=== PATIENT | female | born 1965 | race Caucasian/White ===

== ENCOUNTER 2017-07-21 19:03 | Emergency (ER) | payer BC ==
[~2017-07-21] VITALS: Ht 162.6 cm; Wt 60.0 kg
[2017-07-21] MEDS ORDERED: NAPR500T7 PO (19:18)
[2017-07-21] MEDS ORDERED: KETOROLAC 60MG/2ML VIAL IM ONE (19:45)
[2017-07-21] MEDS ORDERED: HYDROCODONE/ACETAMINOPHEN 5/325MG TABLET PO ONE (19:45)
[2017-07-21 20:13] LABS: HCG SCREEN NEGATIVE
[2017-07-21 21:19] VITALS: BP 119/74
== END 2017-07-21 21:19 | disposition home or self-care (01) ==
LOC: ER 19:32
DX: M54.2 Cervicalgia (principal); M19.90 Unspecified osteoarthritis, unspecified site; V89.2XXA Person injured in unspecified motor-vehicle accident, traffic, initial encounter; Y93.89 Activity, other specified; Y92.411 Interstate highway as the place of occurrence of the external cause; Y99.8 Other external cause status
CPT/HCPCS: 84703; 96372; 99283; J1885; L0172